=== PATIENT | male | born 1970 | race Caucasian/White ===

== ENCOUNTER 2020-01-11 09:54 | Emergency (ER) | payer OTHER, SELFPAY ==
[2020-01-11 10:06] VITALS: BP 131/82; PULSE 61; RESP 16; TEMP 36.4; O2SAT 98
--- NOTE | 2020-01-11 10:12 | ED.GENADULT ---
HPI - General Adult General Chief complaint: Eye Problems Stated complaint: eye problems Time Seen by Provider: 01/11/20 10:12 Source: patient and RN notes reviewed Mode of arrival: ambulatory Limitations: no limitations History of Present Illness HPI narrative: 49-year-old male presents with complaints of LT eye foreign body sensation, redness, painful, and irritation for the past 14 hours. Sahil says he was sitting at home when he started feeling as if something was in LT eye. Denies injury to eye. Has been rubbing eye continuously. No treatment. No copious drainage. Exacerbating factors is opening eye. Relieving factors is closing eyes. Wear reading glasses. No blurred vision, double vision, no photophobia, or pain of eye with movement. The patient reports they have not been diagnosed with COVID-19. The patient reports they are not waiting for the results of a COVID-19 lab test. The patient reports they do not have fever, chills, headaches, weakness, fatigue, myalgia, or facial swelling. The patient reports they do not have a new or worsening cough or shortness of breath. Denies chest pain. The patient reports they do not have any rhinorrhea, congestion, sore throat, nausea, vomiting, abdominal pain, and diarrhea. Tolerating po intake well. Denies recent traveling. Denies concerns for COVID-19 or exposures been home since [id number] order except for essential household needs, working, and return home. At this time, patient is not suspected of having COVID-19. Some parts of this dictation were generated by voice recognition software and may contain typographical and/or grammatical inaccuracies. Related Data Home Medications Medication Instructions Recorded Confirmed atorvastatin 40 mg PO HS 07/05/19 01/11/20 lisinopril 5 mg PO DAILY 07/05/19 01/11/20 melatonin 10 mg PO HS PRN 07/05/19 01/11/20 metoprolol tartrate 50 mg PO DAILY 07/05/19 01/11/20 omeprazole 20 mg PO DAILY 07/05/19 01/11/20 sertraline 50 mg PO DAILY 07/05/19 01/11/20 sertraline 100 mg PO DAILY 07/05/19 01/11/20 aspirin 81 mg PO DAILY 01/11/20 01/11/20 Allergies Allergy/AdvReac Type Severity Reaction Status Date / Time No Known Allergies Allergy Verified 01/11/20 10:10 Review of Systems Review of Systems: Narrative: CONSTITUTIONAL: Denies fever, chills, sweats. EYES: Denies visual changes. Complains of LT eye foreign body sensation, redness, painful, and irritation. ENT: Complains of rhinorrhea, congestion. Denies sore throat, otalgia. CARDIOVASCULAR: Denies chest pain, palpitations, edema. RESPIRATORY: Denies dyspnea, wheezing, cough. GASTROINTESTINAL: Denies abdominal pain, nausea, vomiting, diarrhea. GENITOURINARY: Denies dysuria, hematuria, abnormal discharge. SKIN: Denies rash or itching. MUSCULOSKELETAL: Denies acute back pain, joint pain, or myalgia. NEUROLOGIC: Denies numbness or focal weakness. PSYCHIATRIC: Denies anxiety or depression. All systems reviewed & are unremarkable except as noted in HPI and below. [facility] Past Medical History Medical History (Updated 01/11/20 @ 11:00 by LOLA Cohn) Anxiety Back pain with history of spinal surgery Effusion L4-L5 CAD (coronary artery disease) six stents in place Depression GERD (gastroesophageal reflux disease) H/O prostate cancer Hyperlipidemia Hypertension Myocardial infarct, old ЮЛИЯ (obstructive sleep apnea) wears CPAP Prostate cancer Surgical History Surgical History (Updated 01/11/20 @ 11:00 by LOLA Cohn) H/O heart artery stent History of elbow surgery Left History of hip replacement, total Bilateral History of penile implant History of prostatectomy Family History Family History (Updated 01/11/20 @ 11:01 by LOLA Cohn) Father Diabetes mellitus Mother Breast cancer Social History Social History (Updated 01/11/20 @ 11:02 by LOLA Cohn) Smoking packs per day: 0.5 Smoki
== END 2020-01-11 10:45 | disposition home or self-care (01) ==
PROVIDERS: Emergency Provider Nurse Practitioner Family; PCP Internal Medicine
DX: H57.89 Other specified disorders of eye and adnexa (principal); I25.10 Atherosclerotic heart disease of native coronary artery without angina pectoris; I10 Essential (primary) hypertension; E78.5 Hyperlipidemia, unspecified; I25.2 Old myocardial infarction; Z85.46 Personal history of malignant neoplasm of prostate; F17.210 Nicotine dependence, cigarettes, uncomplicated
CPT/HCPCS: 99213; A9270; G0463

== ENCOUNTER → 2021-06-04 15:03 | Outpatient (CLI) | payer OTHER, SELFPAY ==
--- NOTE | ~2021-06-04 | XR_ITS ---
XR shoulder LT min 2V DATE: 06/04/2021 15:31 INDICATION: Left shoulder acute pain TECHNIQUE: 4 views COMPARISON: None FINDINGS: No fracture or dislocation, periosteal reaction or bone destruction or abnormal soft tissue calcification. There is mild degenerative change at the left acromion clavicular joint. IMPRESSION: Mild degenerative change at left acromioclavicular joint Reviewed, dictated and finalized at location B.
== END ==
PROVIDERS: PCP Nurse Practitioner; Visit Provider Nurse Practitioner
DX: M25.512 Pain in left shoulder (principal)
CPT/HCPCS: 73030

== ENCOUNTER → 2021-12-04 15:58 | Outpatient (CLI) | payer OTHER, SELFPAY ==
--- NOTE | ~2021-12-04 | XR_ITS ---
EXAMINATION: XR chest 2V Exam Date/Time: 12/04/2021 16:12 CDT CLINICAL HISTORY: Cough Comparison: None available. RESULT: Lines, tubes, and devices: None. Lungs and pleura: Clear. Cardiomediastinal silhouette: Stable cardiomediastinal silhouette. Other: No acute osseous or upper abdominal finding. IMPRESSION: No acute cardiopulmonary process Reviewed, dictated and finalized at location K.
== END ==
PROVIDERS: PCP Nurse Practitioner; Visit Provider Nurse Practitioner
DX: R05.9 Cough, unspecified (principal); J06.9 Acute upper respiratory infection, unspecified
CPT/HCPCS: 71046

== ENCOUNTER 2023-05-02 12:38 | Outpatient (CLI) | payer BC, SELFPAY ==
--- NOTE | ~2023-05-02 | CT_ITS ---
EXAMINATION: CT brain wo/w con DATE: 05/02/2023 13:22 INDICATION: Headache. Dizziness. TECHNIQUE: Computed tomography (CT) of the head was performed without intravenous contrast. The mA wa s adjusted according to patient size. Iterative reconstruction technique was employed. Exam dose: 11 99.14 mGy-cm total exam DLP. COMPARISON: None FINDINGS: Bilateral prominent carotid siphon internal carotid artery calcifications. Bilateral right greater than left frontal cerebral cortical volume loss. No intracranial mass lesion or hemorrhage, midline shift or mass effect. No evidence of cerebrovascul ar accident. No subdural or epidural hematoma. Bilateral drusen. No fracture or bone destruction of the cranial vault. There is mucoperiosteal thickening of the left maxillary sinus. The included paranasal sinuses and ma stoid air cells are otherwise unremarkable. IMPRESSION: No acute intracranial finding Cerebral atherosclerosis Bilateral chronic frontal cerebral cortical volume loss Bilateral drusen Reviewed, dictated and finalized at Location A. Reviewed, dictated and finalized at location A.
[2023-05-02 13:10] LABS: Estimated Glomerular Filt Rate > 60
== END 2023-05-02 12:39 ==
PROVIDERS: PCP Nurse Practitioner; Visit Provider Nurse Practitioner
DX: R51.9 Headache, unspecified (principal); R42 Dizziness and giddiness; I67.2 Cerebral atherosclerosis; H35.363 Drusen (degenerative) of macula, bilateral
CPT/HCPCS: 70470; Q9967

== ENCOUNTER 2023-09-26 12:11 | Outpatient (CLI) | payer BC, SELFPAY ==
--- NOTE | ~2023-09-26 | MR_ITS ---
EXAMINATION: MR shoulder LT wo con DATE: 09/26/2023 12:49 INDICATION: Left shoulder pain. TECHNIQUE: Magnetic resonance imaging (MRI) of the left shoulder was performed without intravenous co ntrast. Sequences included axial PD-weighted FS FSE, coronal oblique PD-weighted FS FSE and T2-weight ed FS FSE, and sagittal oblique T2-weighted FS FSE and T1-weighted FSE. COMPARISON: Left shoulder radiographs 06/04/2021 FINDINGS: Coracoacromial arch: The acromion undersurface is curved in morphology (type II). There is severe acromioclavicular joint osteoarthritis including inferiorly directed osteophytes. There is mild subacromial/subdeltoid bursit is. Rotator cuff: There is mild supraspinatus and infraspinatus tendinopathy. Teres minor tendon is normal. There is mi ld subscapularis tendinopathy. No tear. There is mild fatty atrophy in supraspinatus and infraspinatu s muscle bellies. Biceps tendon and glenoid labrum: Biceps tendon is in bicipital groove. Intra-articular biceps tendon is normal. The glenoid labrum is normal. Fluid: There is no glenohumeral joint effusion. Bones/cartilage: The glenoid cartilage is normal. Humeral head cartilage is normal. IMPRESSION: 1. Mild rotator cuff tendinopathy. No tear. 2. Mild subacromial/subdeltoid bursitis. 3. Severe acromioclavicular joint osteoarthritis. Reviewed, dictated and finalized at location E. IAN TEACHER
== END 2023-09-26 12:12 ==
LOC: MICIMG 12:13
DX: M25.512 Pain in left shoulder (principal); M75.82 Other shoulder lesions, left shoulder; M19.012 Primary osteoarthritis, left shoulder; M75.52 Bursitis of left shoulder
CPT/HCPCS: 73221

== ENCOUNTER 2024-07-28 08:10 | Outpatient (CLI) | payer BC, SELFPAY ==
--- NOTE | ~2024-07-28 | CT_ITS ---
EXAMINATION:CT lung screening DATE: 07/28/2024 08:35 INDICATION: Personal history of nicotine dependence. Current smoker with 40 pack year history. TECHNIQUE: Computed tomography (CT) of the chest was performed without intravenous contrast. Automate d exposure control and iterative reconstruction technique were employed. The dose-length product (DLP ) was 298.92 mGy-cm. COMPARISON: None. FINDINGS: There is mild emphysema. Calcified right lung nodules are consistent with old granulomatous disease. There is a 3 mm nodule in left upper lobe. There is mild atelectasis in lingula. No pleural effusion. The heart size is normal. There are coronary artery calcifications. No pericardial effusio n. There is mild thoracic spondylosis. IMPRESSION: 1. Lung-RADS category 2: Benign appearance or behavior. Continue annual screening with noncontrast lo w-dose chest CT in 12 months. Reviewed, dictated and finalized at location A. L ROASTER IMPRESSION: 1. Lung-RADS category 2: Benign appearance or behavior. Continue annual screeni ng with noncontrast low-dose chest CT in 12 months.
== END 2024-07-28 08:11 | disposition home or self-care (01) ==
PROVIDERS: PCP Nurse Practitioner; Visit Provider Nurse Practitioner
DX: Z12.2 Encounter for screening for malignant neoplasm of respiratory organs (principal); Z87.891 Personal history of nicotine dependence
CPT/HCPCS: 71271